=== PATIENT | female | born 1960 | race Caucasian/White ===

== ENCOUNTER 2017-02-10 10:55 | Emergency (ER) | payer MEDICAID, OTHER ==
[~2017-02-10] VITALS: Ht 160 cm; Wt 74.0 kg
[2017-02-10 11:16] VITALS: Ht 160 cm; Wt 74.0 kg
[2017-02-10] MEDS ORDERED: ONDANSETRON 4 MG INJ IV STA (11:37)
[2017-02-10] MEDS ORDERED: KETOROLAC 30 MG INJ IV STA (11:37)
[2017-02-10] MEDS ORDERED: LABETALOL HCL 20MG INJ IV ONE (12:00)
--- NOTE | 2017-02-10 12:01 | ERD ---
ER Documentation Chief Complaint Date/Time DATE: 02/10/17 TIME: 11:57 Chief Complaint HTN, DELCID, RT SHOULDER PAIN X1MTH HPI Patient is a pleasant 56-year-old female who reports headache for the last month. The headache has been intermittent with no particular pattern. Headache has been more persistent over the last 2 days. It is frontal in nature and goes away with Motrin. She denies any visual changes, slurred speech , head trauma, paresthesias, focal weakness, chest pain, shortness of breath, fever, photophobia, or abnormal rashes or bruising. She has had some coughing with congestion and a mild rhinorrhea. She also complains of right shoulder pain which has been more persistent than the last month. She apparently has had shoulder surgery 2 and has a metal plate in her shoulder. She reports decreased range of motion of the shoulder. She states cold weather increases her shoulder pain. Motrin has helped her shoulder pain. She is right-hand dominant. She denies any shoulder trauma. Patient also notes that her blood pressure has been elevated. She was taken off of her lisinopril 7 months ago secondary to a cough which was persistent. The remainder review systems are negative. ROS All systems reviewed and are negative except as per history of present illness. Medications Home Meds No Active Prescriptions or Reported Meds Allergies Allergies: Coded Allergies: codeine (Unverified Allergy, Unknown, HALLUNCIATION, 02/10/17) Physical Exam Vitals Vital Signs Date Time Temp Pulse Resp B/P Pulse Ox O2 Delivery O2 Flow Rate FiO2 02/10/17 14:02 60 18 162/83 99 Room Air 02/10/17 13:24 60 18 171/90 99 Room Air 02/10/17 11:16 97.6 66 20 212/100 100 Physical Exam Const: [] Well-developed well-nourished female sitting on the bed no acute distress Head: Atraumatic normocephalic Eyes: Normal Conjunctiva, pupils equally round and reactive to light, extraocular motions are intact, no photophobia noted ENT: Normal External Ears, Nose and Mouth., TMs clear bilaterally Neck: Full range of motion..~ No meningismus. Resp: Clear to auscultation bilaterally Cardio: Regular rate and rhythm, no murmurs Abd: Soft, non tender, non distended. Normal bowel sounds Skin: No petechiae or rashes Back: No midline or flank tenderness Ext: No cyanosis, or edema, patient reports tenderness to palpation of the right humeral head, decreased range of motion of the right shoulder with no step -off deformities noted Neur: Awake and alert, oriented 3, GCS of 15, cranial nerves II through XII are intact, strength is 5 out of 5 in upper and lower extremities, anger to nose is intact bilaterally Psych: Normal Mood and Affect Result Diagram: 02/10/17 1200 02/10/17 1200 Results 24 hrs Laboratory Tests Test 02/10/17 12:00 White Blood Count 6.610^3/ul Red Blood Count 4.4110^6/ul Hemoglobin 14.1g/dl Hematocrit 41.7% Mean Corpuscular Volume 94.6fl Mean Corpuscular Hemoglobin 32.0pg Mean Corpuscular Hemoglobin Concent 33.8g/dl Red Cell Distribution Width 12.1% Platelet Count 99613^3/UL Mean Platelet Volume 10.7fl Neutrophils % 54.3% Lymphocytes % 38.3% Monocytes % 5.6% Eosinophils % 0.9% Basophils % 0.6% Nucleated Red Blood Cells % 0.0/100WBC Neutrophils # 3.610^3/ul Lymphocytes # 2.510^3/ul Monocytes # 0.410^3/ul Eosinophils # 0.110^3/ul Basophils # 0.010^3/ul Nucleated Red Blood Cells # 0.010^3/ul Prothrombin Time 13.0Sec Prothrombin Time Ratio 1.0 INR International Normalized Ratio 0.98 Activated Partial Thromboplast Time 31.2Sec Sodium Level 138mmol/L Potassium Level 3.8mmol/L Chloride Level 103mmol/L Carbon Dioxide Level 28mmol/L Anion Gap 11 Blood Urea Nitrogen 16mg/dl Creatinine 0.82mg/dl Glucose Level 92mg/dl Calcium Level 9.2mg/dl Total Bilirubin 0.4mg/dl Direct Bilirubin 0.00mg/dl Indirect Bilirubin 0.4mg/dl Aspartate Amino Transf (AST/SGOT) 30IU/L Alanine Aminotransferase (ALT/SGPT) 46IU/L Alkaline Phosphatase 118IU/L Creatine Kinase 71IU/L Creatine Kinase Index 1.3 Creatinine Kinase MB (Mass) 0.92ng/ml Troponin I < 0.012ng/ml Total Protein 8.2g/dl Albumin 4.4g/dl Globulin 3.80g/dl Albumin/Globulin Ratio 1.15 Current Medications Medications (Trade) Dose Ordered Sig/Mathieu Route PRN Reason Start Time Stop Time Status Last Admin Dose Admin Ketorolac Tromethamine (Toradol) 30 mg ONCE STAT IV 02/10/17 11:37 02/10/17 11:44 DC 02/10/17 11:54 Ondansetron HCl (Zofran Inj) 4 mg ONCE STAT IV 02/10/17 11:37 02/10/17 11:44 DC 02/10/17 11:53 Labetalol HCl (Labetalol) 20 mg ONCE ONCE IV 02/10/17 12:00 02/10/17 12:01 DC 02/10/17 11:53 Morphine Sulfate (morphine) 2 mg ONCE ONCE IV 02/10/17 13:00 02/10/17 13:01 DC 02/10/17 13:22 Procedures/MDM Differential includes but is not limited to uncontrolled hypertension, hypertensive headache, sinusitis, sinus headache, adhesive capsulitis of the right shoulder, rotator cuff injury EKG: Rate/Rhythm: Normal Sinus Rhythm at 60 bpm without any evidence of acute ischemia, arrhythmia, or ectopy noted, no old EKG available for comparison QRS, ST, T-waves: No changes consistent w/ acute ischemia Impression: No evidence of ischemia or arrhythmia Chest x-ray does not reveal any acute cardiopulmonary process X-ray the right shoulder shows calcific tendinitis CT the head does not reveal any acute intracranial process 1410:Patient's blood pressure is now down to a systolic of 160. She states that her headache is much improved. Her right shoulder pain is improved as well. She appears stable for discharge home with continued evaluation and treatment as an outpatient. Departure Diagnosis: Primary Impression: Hypertension Hypertension type: essential hypertension Qualified Code: I10 - Essential hypertension Additional Impressions: Adhesive capsulitis of right shoulder Headache behind the eyes Condition: Good Patient Instructions: Adhesive Capsulitis, Headache, Unspecified, High Blood Pressure (Hypertension), Pendulum Exercise for Use with Shoulder Repair Surgeries Referrals: CRISTO SHELTON MD Additional Instructions: Please take the medications as prescribed and follow-up with the primary care doctor in 2 weeks to have your blood pressure rechecked in the medications adjusted. Please see physical therapy to increase the range of motion of your shoulder. Return to the emergency department if at any time he develop any new or worsening symptoms. CHALINO SHEEHAN Feb 10, 2017 12:01
[2017-02-10 12:41] LABS: ADD SCAN DIFF NO
[2017-02-10 12:47] LABS: BASOPHILS % 0.6 % (0.0-2.0); EOSINOPHILS # 0.1 10^3/ul (0.0-0.5); EOSINOPHILS % 0.9 % (0.0-7.0); HEMATOCRIT 41.7 % (37.0-47.0); HEMOGLOBIN 14.1 g/dl (12.0-16.0); LYMPHOCYTES # 2.5 10^3/ul (0.8-2.9); LYMPHOCYTES % 38.3 % (15.0-51.0); MEAN CORPUSCULAR HGB CONC 33.8 g/dl (32.0-37.0); MEAN CORPUSCULAR VOLUME 94.6 fl (82.0-101.0); MEAN PLATELET VOLUME 10.7 fl (7.4-10.4); MONOCYTE # 0.4 10^3/ul (0.3-0.9); MONOCYTES % 5.6 % (0.0-11.0); NEUTROPHIL # 3.6 10^3/ul (1.6-7.5); NEUTROPHILS % 54.3 % (39.0-77.0); PLATELET COUNT 269 10^3/UL (140-415); RED BLOOD COUNT 4.41 10^6/ul (4.20-5.40); RED CELL DISTRIBUTION WIDTH 12.1 % (11.5-14.5); WHITE BLOOD COUNT 6.6 10^3/ul (4.8-10.8)
[2017-02-10 12:52] LABS: ALBUMIN 4.4 g/dl (3.3-4.9); CHLORIDE 103 mmol/L (97-110)
[2017-02-10 12:53] LABS: SODIUM 138 mmol/L (135-144)
[2017-02-10 12:54] LABS: INR 0.98
[2017-02-10 12:55] LABS: ALBUMIN/GLOBULIN RATIO 1.15; ALKALINE PHOSPHATASE 118 IU/L (42-121); ASPARTATE AMINO TRANSFERASE 30 IU/L (15-46); BILIRUBIN,INDIRECT 0.4 mg/dl (0-1.1); BILIRUBIN,TOTAL 0.4 mg/dl (0.2-1.3); CARBON DIOXIDE 28 mmol/L (21-31); CREATININE 0.82 mg/dl (0.44-1.00); PARTIAL THROMBOPLASTIN TIME 31.2 Sec (25.0-35.0); TOTAL PROTEIN 8.2 g/dl (6.1-8.1)
[2017-02-10 12:56] LABS: ALANINE AMINOTRANSFERASE 46 IU/L (13-69); BLOOD UREA NITROGEN 16 mg/dl (7-20); CALCIUM 9.2 mg/dl (8.4-10.2); GLUCOSE 92 mg/dl (70-220)
--- NOTE | 2017-02-10 12:57 | RADRPT ---
PROCEDURE: CT brain without contrast CLINICAL INDICATION: Frontal headache, with dizziness, nausea TECHNIQUE: CT of the brain without contrast performed on a multidetector CT scanner, with multiplan ar reformats. One or more of the following dose reduction techniques were used: Automated exposure control, adjustment in mA and / or kV according to patient size, use of iterative reconstructive jose alejandro hnique. CTDIvol = 45 mGy; DLP = 630 mGy-cm. COMPARISON: None available FINDINGS: No acute intracranial hemorrhage is identified. No extra-axial fluid collection is seen. There is no mass effect. No midline shift is identified. Ventricles and sulci are mildly enlarged compatible with generalized volume loss. The density of the brain appears unremarkable. Vasquez-white differentiation is preserved. Atherosclerotic calcifications of the intracranial internal carotid arteries are noted. Osseous structures are unremarkable. Mastoid air cells and imaged paranasal sinuses grossly clear. IMPRESSION: 1. No evidence of acute intracranial pathology. 2. Mild generalized volume loss. RPTAT: VV .Andrea Fofana MD, MD Date Time Electronically viewed and signed by .Andrea Fofana MD, on 02/10/2017 12:57 .O/
[2017-02-10 12:58] LABS: CREATINE KINASE 71 IU/L (23-200)
[2017-02-10] MEDS ORDERED: morphine 2 MG INJ IV ONE (13:00)
[2017-02-10 13:05] LABS: CK-MB 0.92 ng/ml (0.0-2.4)
[2017-02-10 13:07] LABS: ANION GAP 11 (8-16); POTASSIUM 3.8 mmol/L (3.5-5.1)
[2017-02-10 13:11] LABS: TROPONIN-I < 0.012 ng/ml (0.00-0.12)
--- NOTE | 2017-02-10 13:11 | RADRPT ---
PROCEDURE: Chest Radiograph. CLINICAL INDICATION: Chest pain TECHNIQUE: Single frontal chest radiograph. COMPARISON: None available FINDINGS: The cardiomediastinal silhouette is within normal limits. No infiltrate or effusion is seen. Th e bones are intact. IMPRESSION: 1. Unremarkable chest radiograph. RPTAT: KK .Danny Tristan MD, MD Date Time Electronically viewed and signed by .Danny Tristan MD, on 02/10/2017 13:11 .B/
--- NOTE | 2017-02-10 13:12 | RADRPT ---
PROCEDURE: XR Shoulder. CLINICAL INDICATION: Right shoulder pain TECHNIQUE: 3 views of the right shoulder are available for review. COMPARISON: None available FINDINGS: There is normal mineralization and alignment of the bones of the right shoulder. No acute fracture or dislocation is identified. The glenohumeral joint is within normal limits. There are suture ancho rs in the right humeral head likely related prior rotator cuff surgery. A coarse calcification is s een adjacent to the humeral head consistent with calcific tendinopathy. The acromioclavicular joint is intact. The visualized portions of the right chest wall are grossly unremarkable. The soft tis sues are within normal limits. IMPRESSION: 1. Calcific tendinopathy of the right shoulder. 2. Suture anchors seen in the humeral head, correlate with surgical history. RPTAT: KK .Danny Tristan MD, Date Time Electronically viewed and signed by .Danny Tristan MD, MD on 02/10/2017 13:12 .B/
[2017-02-10 14:02] VITALS: BP 162/83; PULSE 60; RESP 18
[2017-02-10] MEDS ORDERED: HYDR-906 PO (14:15)
[2017-02-10] MEDS ORDERED: ONDA4TAB8 PO (14:16)
[2017-02-10] MEDS ORDERED: CYCL-319 PO (14:16)
[2017-02-10] MEDS ORDERED: ETOD300C26 PO (14:17)
[2017-02-10] MEDS ORDERED: LABE100T3 PO (14:17)
== END 2017-02-10 14:36 | disposition home or self-care (01) ==
LOC: E/R 10:55
DX: I10 Essential (primary) hypertension (principal); M75.01 Adhesive capsulitis of right shoulder; R07.9 Chest pain, unspecified
CPT/HCPCS: 70450; 71010; 73030; 80053; 82550; 82553; 84484; 85025; 85610; 85730; 93005; J1885; J2270; J2405; Z7610; 36415; 96374; 96375

== ENCOUNTER 2018-03-08 07:51 | Emergency (ER) | END 2018-03-08 11:29 | disposition home or self-care (01) ==